=== PATIENT | female | born 1930 | race Caucasian/White ===

== ENCOUNTER 2018-06-24 11:47 | Inpatient (IN) | payer MEDICARE, MEDICAID ==
[2018-06-24] MEDS ORDERED: Aspirin 325 mg EC Tablets PO STA (12:42)
--- NOTE | 2018-06-24 13:00 | RAD ---
Date of service: 06/24/2018 PROCEDURE: CHEST RADIOGRAPH, 1 VIEW HISTORY: chest pain COMPARISON: None available. FINDINGS: LUNGS: No consolidation. Shallow lung volumes PLEURA: No pneumothorax. Probable small left pleural effusion CARDIOVASCULAR: Mild cardiomegaly. Mild pulmonary venous congestion OSSEOUS STRUCTURES: Midline sternotomy. VISUALIZED UPPER ABDOMEN: Normal. OTHER FINDINGS: Italic device projects over the left heart correlate clinically IMPRESSION: Mild cardiomegaly and mild pulmonary venous congestion small left pleural effusion. Other findings as above.
[2018-06-24 13:02] LABS: BASO % 0.9 % (0.0-2.0); EOS % 0.4 % (0.0-4.0); HEMOGLOBIN 10.9 g/dL (11.0-16.0); LYMPH # 1.9 K/uL (1.0-4.3); MEAN CELL VOLUME 87.7 fL (81.0-99.0); MEAN CORPUSCULAR HEMOGLOBIN 29.7 pg (27.0-31.0); MEAN CORPUSCULAR HGB CONC 33.9 g/dL (33.0-37.0); MEAN PLATELET VOLUME 8.8 fL (7.2-11.7); MONO # 0.7 K/uL (0.0-0.8); MONO % 13.2 % (0.0-10.0); NEUT # 2.8 K/uL (1.8-7.0); NEUT % 51.5 % (50.0-75.0); RBC 3.67 Mil/uL (3.80-5.20); RED CELL DISTRIBUTION WIDTH 14.7 % (11.5-14.5); WHITE BLOOD COUNT 5.5 K/uL (4.8-10.8)
[2018-06-24 13:32] LABS: ALBUMIN 3.9 g/dL (3.5-5.0); ALT/SGPT 20 U/L (9-52); AST/SGOT 13 U/L (14-36); BLOOD UREA NITROGEN 14 mg/dL (7-17); CALCIUM 9.1 mg/dl (8.6-10.4); GFR NON-AFRICAN AMERICAN > 60
[2018-06-24] MEDS ORDERED: Iodixanol 320 MG/ML 100 ML BOTTLE IV ONE (13:40)
[2018-06-24 13:44] LABS: B-TYPE NATRIURETIC PEPTIDE 5600 pg/mL (0-900)
--- NOTE | 2018-06-24 15:28 | C.PDOC ---
History Of Present Illness 88 y/o female, BIB family,presents to the ED complaining of left sided chest pain since this morning. As per family, the patient has a PMHx of a valve replacement. The patient states she has not had any type of cardiac workup done recently. She reports flying in from [place] this morning. The patient denies any fever, SOB or cough. Time Seen by Provider: 06/24/18 12:40 Chief Complaint (Nursing): Chest Pain History Per: Patient History/Exam Limitations: no limitations Onset/Duration Of Symptoms: Hrs Current Symptoms Are (Timing): Still Present Quality: "Pain" Recent travel outside of the [place]: No Additional History Per: Family (son) Past Medical History Reviewed: Historical Data, Nursing Documentation, Vital Signs Vital Signs: Last Vital Signs Temp 97.4 F L 06/24/18 17:30 Pulse 75 06/24/18 17:30 Resp 20 06/24/18 17:30 BP 145/79 06/24/18 17:30 Pulse Ox 98 06/24/18 17:30 - Medical History PMH: Gastrointestinal Ulcer, HTN Other Surgeries: Valve replacement Family History: States: Unknown Family Hx - Social History Hx Alcohol Use: No Hx Substance Use: No - Immunization History Hx Tetanus Toxoid Vaccination: No Hx Influenza Vaccination: Yes Hx Pneumococcal Vaccination: No Review Of Systems Except As Marked, All Systems Reviewed And Found Negative. Constitutional: Negative for: Fever Cardiovascular: Positive for: Chest Pain (left sided ) Respiratory: Negative for: Cough, Shortness of Breath Neurological: Negative for: Weakness Physical Exam - Physical Exam Appears: Well, Non-toxic, No Acute Distress Skin: Normal Color, Warm, No Rash Head: Atraumatic, Normacephalic Eye(s): bilateral: PERRL, EOMI Ear(s): Bilateral: Normal Oral Mucosa: Moist Neck: Normal ROM, Supple Chest: Symmetrical Cardiovascular: Rhythm Irregular, No Murmur Respiratory: Normal Breath Sounds, Rales, Rhonchi, Wheezing Gastrointestinal/Abdominal: Soft, No Tenderness, No Distention Extremity: Normal ROM Extremity: Bilateral: Other (trace edema) Pulses: Left Dorsalis Pedis: Normal, Right Dorsalis Pedis: Normal Neurological/Psych: Oriented x3, Other (no gross focal deficit) Gait: Steady ED Course And Treatment - Laboratory Results Result Diagrams: 06/24/18 12:58 06/24/18 13:18 ECG: Interpreted By Me Interpretation Of ECG: A-Fib 191 bpm O2 Sat by Pulse Oximetry: 100 (RA) Pulse Ox Interpretation: Normal - Other Rad Chest X-Ray: Viewed By Me, Read By Radiologist Interpretation: FINDINGS: LUNGS: No consolidation. Shallow lung volumes. PLEURA: No pneumothorax. Probable small left pleural effusion. CARDIOVASCULAR : Mild cardiomegaly. Mild pulmonary venous congestion. OSSEOUS STRUCTURES: Midline sternotomy. VISUALIZED UPPER ABDOMEN: Normal. OTHER FINDINGS: Italic device projects over the left heart correlate clinically. IMPRESSION: Mild cardiomegaly and mild pulmonary venous congestion small left pleural effusion. Other findings as above. - CT Scan/US Chest Other Rad Studies (CT/US): Read By Radiologist, Radiology Report Reviewed CT/US Interpretation: FINDINGS: PULMONARY ARTERIES: Visualized pulmonary trunk , right and left main, lobar, segmental and proximal subsegmental branches of the pulmonary arteries are relatively well opacified with defects seen to suggest acute central pulmonary embolus. Pulmonary trunk measures approximately 2.8 cm. AORTA: No acute findings. No thoracic aortic aneurysm. Ascending thoracic aorta measures approximately 3.5 cm and descending thoracic aorta measures approximately 2.5 cm. LUNGS: Mild passive/dependent type atelectasis both posterior lower lung garsia. Additionally, there are vague ground-glass hazy opacities seen throughout the upper and lower lobes that could represent sequela of air trapping ; rule out mild chronic compensated pulmonary venous congestion. There is a small approximately 4.7 mm elliptical shaped nodular density left upper lobe along the posterolateral convexity near the pleural surface with made the inferior translucent and component seen on axial series 3 image number 25 and 29 respectively. Image number. In addition, there is a very tiny approximately 1.3 mm nodular density posterior aspect left upper lobe abutting lateral margin of the major fissure. There appears to be some minimal scarring changes in the left lingular region and left anterior upper. PLEURAL SPACES: Unremarkable. No effusion or pneumothorax. HEART: Unremarkable. No cardiomegaly. No significant pericardial effusion. Heavy mitral valve calcification. LYMPH NODES: Few small nonspecific mediastinal lymph nodes are present. No significant hilar adenopathy. Central airways midline and patent. BONES, CHEST WALL: Mild multilevel degenerative spondylosis of the thoracic spine. No acute compression fractures no retropulsed fragments. Vertebral bodies exhibit normal stature. Minimal levoscoliosis centered in the lower thoracic region. Vertebral bodies and facets otherwise exhibit normal alignment. . OTHER FINDINGS: Small low-attenuation nodular densities both adrenal glands likely representing adrenal adenomas (left-side measuring approximate 12.2 mm right side measuring approximately 11.2 mm) . Cholecystectomy. IMPRESSION: No evidence of acute central pulmonary embolus. Marked cardiomegaly. Mild passive/dependent type atelectasis both posterior lower lung garsia. Hazy ground-glass opacities seen throughout the upper lobes bilaterally nonspecific. Rule out air trapping versus mild chronic compensated pulmonary venous congestion. There are 2 tiny nodular densities right upper lobe as detailed above. Followup the CT scan in 6 months could be performed to assess stability. Medical Decision Making Medical Decision Making: Impression: 88 y/o female with left sided chest pain Plan: -Chest CT -EKG -B-Type Natriuretic Peptide -CMP -Troponin I -CBC -Chest X-Ray -Aspirin 325 mg PO Disposition - Disposition Disposition: HOSPITALIZED Disposition Time: 16:00 Condition: STABLE - Clinical Impression Clinical Impression: Chest pain - PA / ACCOUNT DEVELOPMENT EXECUTIVE / Resident Statement MD/DO has reviewed & agrees with the documentation as recorded. - Scribe Statement The provider has reviewed the documentation as recorded by the Scribe (Damari Schmitt) Provider Attestation: All medical record entries made by the Scribe were at my direction and personally dictated by me. I have reviewed the chart and agree that the record accurately reflects my personal performance of the history, physical exam, medical decision making, and the department course for this patient. I have also personally directed, reviewed, and agree with the discharge instructions and disposition.
--- NOTE | 2018-06-24 16:01 | CT ---
Date of service: 06/24/2018 PROCEDURE: CT Chest with contrast (Pulmonary Angiogram) HISTORY: Chest pain ; rule out PE COMPARISON: None available. TECHNIQUE: Axial computed tomography images were obtained of the chest in the pulmonary arterial phase of enhancement. Coronal and sagittal reformatted images were created and reviewed. Intravenous contrast dose: 100 cc Visipaque 320 Radiation dose: Total exam DLP = 146.28 mGy-cm. This CT exam was performed using one or more of the following dose reduction techniques: Automated exposure control, adjustment of the mA and/or kV according to patient size, and/or use of iterative reconstruction technique. FINDINGS: PULMONARY ARTERIES: Visualized pulmonary trunk, right and left main, lobar, segmental and proximal subsegmental branches of the pulmonary arteries are relatively well opacified with defects seen to suggest acute central pulmonary embolus. Pulmonary trunk measures approximately 2.8 cm. AORTA: No acute findings. No thoracic aortic aneurysm. Ascending thoracic aorta measures approximately 3.5 cm and descending thoracic aorta measures approximately 2.5 cm. LUNGS: Mild passive/dependent type atelectasis both posterior lower lung garsia. Additionally, there are vague ground-glass hazy opacities seen throughout the upper and lower lobes that could represent sequela of air trapping ; rule out mild chronic compensated pulmonary venous congestion. There is a small approximately 4.7 mm elliptical shaped nodular density left upper lobe along the posterolateral convexity near the pleural surface with made the inferior translucent and component seen on axial series 3 image number 25 and 29 respectively. Image number. In addition, there is a very tiny approximately 1.3 mm nodular density posterior aspect left upper lobe abutting lateral margin of the major fissure. There appears to be some minimal scarring changes in the left lingular region and left anterior upper PLEURAL SPACES: Unremarkable. No effusion or pneumothorax. HEART: Unremarkable. No cardiomegaly. No significant pericardial effusion. Heavy mitral valve calcification. LYMPH NODES: Few small nonspecific mediastinal lymph nodes are present. No significant hilar adenopathy. Central airways midline and patent. BONES, CHEST WALL: Mild multilevel degenerative spondylosis of the thoracic spine. No acute compression fractures no retropulsed fragments. Vertebral bodies exhibit normal stature. Minimal levoscoliosis centered in the lower thoracic region. Vertebral bodies and facets otherwise exhibit normal alignment. . OTHER FINDINGS: Small low-attenuation nodular densities both adrenal glands likely representing adrenal adenomas (left-side measuring approximate 12.2 mm right side measuring approximately 11.2 mm) . Cholecystectomy. IMPRESSION: No evidence of acute central pulmonary embolus. Marked cardiomegaly. Mild passive/dependent type atelectasis both posterior lower lung garsia. Hazy ground-glass opacities seen throughout the upper lobes bilaterally nonspecific. Rule out air trapping versus mild chronic compensated pulmonary venous congestion. There are 2 tiny nodular densities right upper lobe as detailed above. Followup the CT scan in 6 months could be performed to assess stability.
[2018-06-24 17:50] VITALS: RESP 20
--- NOTE | 2018-06-24 18:28 | CP.PCM.HP ---
Past Patient History - Infectious Disease Hx of Infectious Diseases: None - Past Social History Smoking Status: Never Smoked - CARDIAC Hx Hypertension: Yes - PSYCHIATRIC Hx Substance Use: No - SURGICAL HISTORY Hx Surgeries: Yes Hx Valve Replacement: Yes - ANESTHESIA Hx Anesthesia: Yes Hx Anesthesia Reactions: No Hx Malignant Hyperthermia: No Meds Allergies/Adverse Reactions: Allergies Allergy/AdvReac Type Severity Reaction Status Date / Time No Known Allergies Allergy Verified 06/24/18 12:13 Results - Vital Signs Recent Vital Signs: Last Vital Signs Temp 97.4 F L 06/24/18 17:30 Pulse 75 06/24/18 17:30 Resp 20 06/24/18 17:30 BP 145/79 06/24/18 17:30 Pulse Ox 98 06/24/18 17:30 - Labs Result Diagrams: 06/24/18 12:58 06/24/18 13:18 Labs: Laboratory Results - last 24 hr 06/24/18 06/24/18 12:58 13:18 WBC 5.5 RBC 3.67 L Hgb 10.9 L Hct 32.2 L MCV 87.7 MCH 29.7 MCHC 33.9 RDW 14.7 H Plt Count 205 MPV 8.8 Neut % (Auto) 51.5 Lymph % (Auto) 34.0 [place] % (Auto) 13.2 H Eos % (Auto) 0.4 Baso % (Auto) 0.9 Neut # (Auto) 2.8 Lymph # (Auto) 1.9 [place] # (Auto) 0.7 Eos # (Auto) 0.0 Baso # (Auto) 0.0 Sodium 135 Potassium 4.9 Chloride 100 Carbon Dioxide 24 Anion Gap 17 BUN 14 Creatinine 0.8 Est GFR ( Amer) > 60 Est GFR (Non-Af Amer) > 60 Random Glucose 122 H Calcium 9.1 Total Bilirubin 0.6 AST 13 L ALT 20 Alkaline Phosphatase 67 Troponin I < 0.0120 NT-Pro-B Natriuret Pep 5600 H Total Protein 7.6 Albumin 3.9 Globulin 3.7 Albumin/Globulin Ratio 1.0
--- NOTE | 2018-06-24 18:59 | CARD ---
APPROVED REPORT Date of service: 06/24/2018 EKG Measurement Heart [id number] <Conclusion> Atrial fibrillation Nonspecific ST and T wave abnormality Abnormal ECG
[2018-06-24 23:10] LABS: CK-MB 0.47 ng/mL (0.0-3.38)
[2018-06-25 07:24] LABS: CK-MB 0.51 ng/mL (0.0-3.38)
[2018-06-25] MEDS: Pantoprazole 40 mg EC Tab PO SCH (09:18)
[2018-06-25] MEDS: Enoxaparin 40 mg Syringe SC SCH (09:21)
--- NOTE | 2018-06-25 11:25 | CP.PCM.PN ---
Subjective - Date & Time of Evaluation Date of Evaluation: 06/25/18 Time of Evaluation: 15:30 - Subjective Subjective: PGY 3 Med Note- Dr. Ruy Jimenez's service. CC: chest pain 88 year old female with past medical history significant for atrial fibrillation and prior mitral valve replacement presents with complaints of chest pain which she began experiencing one day prior. Patient recently arrived from [place]. Patient denies current chest pain or palpitations. Limited ROS at this time. PMHx- as stated above PSHx- valve replacement Fam Hx unkown Social- denies at this time Meds- ASA 81 mg, Coreg 25 mg daily, PPI 40 mg daily, Zestril 20 mg daily, Feosol 325 mg daily Allergies- NKDA Objective - Vital Signs/Intake and Output Vital Signs (last 24 hours): Temp Pulse Resp BP Pulse Ox 98.5 F 100 H 20 121/77 100 06/25/18 07:00 06/25/18 07:35 06/25/18 07:00 06/25/18 09:18 06/25/18 07:00 Intake and Output: 06/25/18 06/25/18 06:59 18:59 Intake Total 420 Balance 420 - Medications Medications: Current Medications Aspirin (Aspirin Chewable) 81 mg PO DAILY [facility] Last Admin: 06/25/18 09:18 Dose: 81 mg Carvedilol (Coreg) 25 mg PO DAILY [facility] Last Admin: 06/25/18 09:18 Dose: 25 mg Enoxaparin Sodium (Lovenox) 40 mg SC DAILY [facility] Last Admin: 06/25/18 09:21 Dose: 40 mg Ferrous Sulfate (Feosol) 325 mg PO DAILY [facility] Last Admin: 06/25/18 11:06 Dose: 325 mg Lisinopril (Zestril) 20 mg PO DAILY [facility] Last Admin: 06/25/18 09:18 Dose: 20 mg Pantoprazole Sodium (Protonix Ec Tab) 40 mg PO DAILY [facility] Last Admin: 06/25/18 09:18 Dose: 40 mg Pneumococcal Polyvalent Vaccine (Pneumovax 23 Vaccine) 0.5 ml IM .ONCE ONE Stop: 06/26/18 10:01 - Labs Labs: 06/24/18 12:58 06/24/18 13:18 - Constitutional Appears: Non-toxic, No Acute Distress - Head Exam Head Exam: ATRAUMATIC, NORMAL INSPECTION, NORMOCEPHALIC - Eye Exam Eye Exam: EOMI, Normal appearance Pupil Exam: NORMAL ACCOMODATION, PERRL - ENT Exam ENT Exam: Mucous Membranes Moist - Neck Exam Neck Exam: Full ROM - Respiratory Exam Respiratory Exam: Clear to Ausculation Bilateral, NORMAL BREATHING PATTERN - Cardiovascular Exam Cardiovascular Exam: +S1, +S2 - GI/Abdominal Exam GI & Abdominal Exam: Soft, Normal Bowel Sounds - Extremities Exam Extremities Exam: Full ROM, Pedal Edema (trace) - Neurological Exam Neurological Exam: Alert, Awake - Psychiatric Exam Psychiatric exam: Normal Affect, Normal Mood - Skin Skin Exam: Dry, Normal Color Assessment and Plan (1) Chest pain Assessment & Plan: EKG showed Atrial fibrillation Echo showed EF of 46.7%; LV systolic function noted. Normal LV segmental wall motion. Biprosthetic mitral valve noted. Mitral regurgitation (mild) noted. Mild tricuspid regurgitation and mild pulmonary HTN ROMIs were neg. [place], (Dr. Jolley consulted) Cont ASA 81 mg, Coreg 25 mg PO daily, Zestril 20 mg PO daily at this time F/U TSH, Free T4, HgbA1c, Lipid Panel Status: Acute (2) Atrial fibrillation Assessment & Plan: EKG shows atrial fibrillation On telemetry Continue beta yesenia therapy Cardiology (Dr. Jolley) following Monitor Status: Chronic (3) Prophylactic measure Assessment & Plan: On Lovenox 40 mg SC daily On PPI 40 mg PO daily Discussed with attending. All management and planning per Dr. Ruy Jimenez. Status: Acute
--- NOTE | 2018-06-25 11:38 | CP.PCM.CON ---
History of Present Illness - History of Present Illness History of Present Illness: 88 y/o female, BIB family,presents to the ED complaining of left sided chest pain since this morning. As per family, the patient has a PMHx of a valve replacement. The patient states she has not had any type of cardiac workup done recently. She reports flying in from [place] this morning. The patient denies any fever, SOB or cough. PSHX: Valve replacement 14 years ago [place], unknown valve...No cardiac hx obtainable as patient is not able to detail her medical history and unable to contact family. Review of Systems - Review of Systems All systems: reviewed and no additional remarkable complaints except Past Patient History - Infectious Disease Hx of Infectious Diseases: None - Past Social History Smoking Status: Never Smoked - CARDIAC Hx Hypertension: Yes - PSYCHIATRIC Hx Substance Use: No - SURGICAL HISTORY Hx Surgeries: Yes Hx Valve Replacement: Yes - ANESTHESIA Hx Anesthesia: Yes Hx Anesthesia Reactions: No Hx Malignant Hyperthermia: No Meds Allergies/Adverse Reactions: Allergies Allergy/AdvReac Type Severity Reaction Status Date / Time No Known Allergies Allergy Verified 06/24/18 12:13 - Medications Medications: Current Medications Aspirin (Aspirin Chewable) 81 mg PO DAILY [facility] Last Admin: 06/25/18 09:18 Dose: 81 mg Carvedilol (Coreg) 25 mg PO DAILY [facility] Last Admin: 06/25/18 09:18 Dose: 25 mg Enoxaparin Sodium (Lovenox) 40 mg SC DAILY [facility] Last Admin: 06/25/18 09:21 Dose: 40 mg Ferrous Sulfate (Feosol) 325 mg PO DAILY [facility] Last Admin: 06/25/18 11:06 Dose: 325 mg Lisinopril (Zestril) 20 mg PO DAILY [facility] Last Admin: 06/25/18 09:18 Dose: 20 mg Pantoprazole Sodium (Protonix Ec Tab) 40 mg PO DAILY [facility] Last Admin: 06/25/18 09:18 Dose: 40 mg Pneumococcal Polyvalent Vaccine (Pneumovax 23 Vaccine) 0.5 ml IM .ONCE ONE Stop: 06/26/18 10:01 Physical Exam - Constitutional Appears: No Acute Distress - Head Exam Head Exam: ATRAUMATIC, NORMAL INSPECTION, NORMOCEPHALIC - Eye Exam Eye Exam: EOMI, Normal appearance, PERRL - ENT Exam ENT Exam: Mucous Membranes Moist - Neck Exam Neck exam: Positive for: Full Rom, Normal Inspection - Respiratory Exam Respiratory Exam: Clear to Auscultation Bilateral. absent: Rhonchi, Wheezes - Cardiovascular Exam Cardiovascular Exam: REGULAR RHYTHM, +S1, +S2. absent: Systolic Murmur - GI/Abdominal Exam GI & Abdominal Exam: Normal Bowel Sounds, Soft. absent: Tenderness - Extremities Exam Extremities exam: Positive for: normal inspection. Negative for: pedal edema - Neurological Exam Neurological exam: Alert, Oriented x3 - Psychiatric Exam Psychiatric exam: Normal Affect, Normal Mood - Skin Skin Exam: Normal Color, Warm Results - Vital Signs Recent Vital Signs: Last Vital Signs Temp 98.5 F 06/25/18 07:00 Pulse 100 H 06/25/18 07:35 Resp 20 06/25/18 07:00 BP 121/77 06/25/18 09:18 Pulse Ox 100 06/25/18 07:00 - Labs Result Diagrams: 06/24/18 12:58 06/24/18 13:18 Labs: Laboratory Results - last 24 hr 06/24/18 06/24/18 06/24/18 12:58 13:18 21:35 WBC 5.5 RBC 3.67 L Hgb 10.9 L Hct 32.2 L MCV 87.7 MCH 29.7 MCHC 33.9 RDW 14.7 H Plt Count 205 MPV 8.8 Neut % (Auto) 51.5 Lymph % (Auto) 34.0 [place] % (Auto) 13.2 H Eos % (Auto) 0.4 Baso % (Auto) 0.9 Neut # (Auto) 2.8 Lymph # (Auto) 1.9 [place] # (Auto) 0.7 Eos # (Auto) 0.0 Baso # (Auto) 0.0 Sodium 135 Potassium 4.9 Chloride 100 Carbon Dioxide 24 Anion Gap 17 BUN 14 Creatinine 0.8 Est GFR ( Amer) > 60 Est GFR (Non-Af Amer) > 60 Random Glucose 122 H Calcium 9.1 Total Bilirubin 0.6 AST 13 L ALT 20 Alkaline Phosphatase 67 Total Creatine Kinase 29 L CK-MB (Mass) 0.47 Troponin I < 0.0120 < 0.0120 NT-Pro-B Natriuret Pep 5600 H Total Protein 7.6 Albumin 3.9 Globulin 3.7 Albumin/Globulin Ratio 1.0 06/25/18 06:54 WBC RBC Hgb Hct MCV MCH MCHC RDW Plt Count MPV Neut % (Auto) Lymph % (Auto) [place] % (Auto) Eos % (Auto) Baso % (Auto) Neut # (Auto) Lymph # (Auto) [place] # (Auto) Eos # (Auto) Baso # (Auto) Sodium Potassium Chloride Carbon Dioxide Anion Gap BUN Creatinine Est GFR ( Amer) Est GFR (Non-Af Amer) Random Glucose Calcium Total Bilirubin AST ALT Alkaline Phosphatase Total Creatine Kinase 27 L CK-MB (Mass) 0.51 Troponin I < 0.0120 NT-Pro-B Natriuret Pep Total Protein Albumin Globulin Albumin/Globulin Ratio - EKG Data EKG Interpreted by: Myself Assessment & Plan - Assessment and Plan (Free Text) Assessment: Diagnostic images directly viewed by me and summarized as follows: EKG: AFIB, no acute ischemic changes CXR: mild congestion, cardiomegaly labs: Trop negative x3, mild anemia 10.2; normal creat IMPRESSION: 1. Hx of unknown valve surgery: - per echo it is non-metallic ? 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 cardiac silloute ? cardiomems PA pressure monitor ECHO suggests: Mod LVH, normal LVEF, mild MR, TR, mild-mod pulm HTN, grade 2 diastolic dysfunction, mild but no hemodynamically significant valve lesions. Normal wall motion 2. AFIB - likely chronic - Patient will benefit from chronic anticoagulation for stroke risk reduction - cont rate control. 3. HTN - labile - coreg 25 BID, lisinopril 20, add norvasc 5 daily if needed Currently there is no evidence of ADHF AFIB rate is controlled Patient not able to detail her medical valve history Family not reachable > social work to help clarify details
--- NOTE | 2018-06-25 14:03 | CARD ---
APPROVED REPORT Date of service: 06/25/2018 EXAM: Two-dimensional and M-mode echocardiogram with Doppler and color Doppler. Other Information Quality : GoodRhythm : INDICATION Chest Pain HX OF VALVE REPLACEMENT 2D DIMENSIONS IVSd1.4 (0.7-1.1cm)LVDd3.2 (3.9-5.9cm) LVOT Diameter1.5 (1.8-2.4cm)PWd1.4 (0.7-1.1cm) LVDs2.5 (2.5-4.0cm)FS (%) 22.6 % LVEF (%)46.7 (>50%) M-Mode DIMENSIONS Left Atrium (MM)5.14 (2.5-4.0cm)Aortic Root2.43 (2.2-3.7cm) Aortic Cusp Exc.1.18 (1.5-2.0cm) Aortic Valve AoV Peak Cmpsgfkh262.6cm/sAoV VTI36.9cmAO Peak GR.16mmHg LVOT Peak Ojabiado981.7cm/sLVOT VTI19.80cmAO Mean GR.7mmHg SARA (VMAX)0.04cj9QLC (VTI)0.97cm2 Mitral Valve MV E Smdextdo611.2cm/sMV E Peak Gr.10mmHgMV A Leizdtjt67.3cm/s MV E Mean Gr.4mmHgMV IPJ27kdQ/A ratio3.1 MVA (PHT)2.57cm2 TDI E/Lateral E'0.0E/Medial E'0.0 Pulmonary Valve PV Peak Efghldns90.9cm/sPV Peak Grad.1mmHg Tricuspid Valve TR Peak Lwevwujp051sm/sTR Peak Gr.93oxXiIARV72tjLa LEFT VENTRICLE The left ventricle is normal size. There is moderate concentric left ventricular hypertrophy. Left ventricle systolic function is borderline. There is normal LV segmental wall motion. RIGHT VENTRICLE The right ventricle is normal size. There is normal right ventricular wall thickness. Systolic function is mildly reduced. ATRIA The left atrium is moderately dilated. The right atrium is moderately dilated. AORTIC VALVE ? TAVR No aortic regurgitation is present. There is no aortic valvular stenosis. MITRAL VALVE There is no mitral valve stenosis. Mitral regurgitation is mild. There is a bioprosthetic mitral valve. TRICUSPID VALVE The tricuspid valve is normal in structure. There is mild tricuspid regurgitation. There is mild pulmonary hypertension. GREAT VESSELS The aortic root is normal in size. The IVC is dilated. PERICARDIAL EFFUSION There is no pericardial effusion. <Conclusion> The left ventricle is normal size. There is moderate concentric left ventricular hypertrophy. Left ventricle systolic function is borderline. There is normal LV segmental wall motion. ? TAVR No aortic regurgitation is present. There is no aortic valvular stenosis. There is a bioprosthetic mitral valve. Mitral regurgitation is mild. There is no mitral valve stenosis. There is mild tricuspid regurgitation. There is mild pulmonary hypertension.
--- NOTE | 2018-06-25 20:26 | CP.PCM.PN ---
Subjective - Date & Time of Evaluation Date of Evaluation: 06/25/18 Time of Evaluation: 10:00 - Subjective Subjective: clinically same Objective - Vital Signs/Intake and Output Vital Signs (last 24 hours): Temp Pulse Resp BP Pulse Ox 97.9 F 80 20 98/58 L 100 06/25/18 17:04 06/25/18 17:04 06/25/18 17:04 06/25/18 17:04 06/25/18 17:04 - Medications Medications: Current Medications Aspirin (Aspirin Chewable) 81 mg PO DAILY [facility] Last Admin: 06/25/18 09:18 Dose: 81 mg Carvedilol (Coreg) 25 mg PO DAILY [facility] Last Admin: 06/25/18 09:18 Dose: 25 mg Enoxaparin Sodium (Lovenox) 40 mg SC DAILY [facility] Last Admin: 06/25/18 09:21 Dose: 40 mg Ferrous Sulfate (Feosol) 325 mg PO DAILY [facility] Last Admin: 06/25/18 11:06 Dose: 325 mg Lisinopril (Zestril) 20 mg PO DAILY [facility] Last Admin: 06/25/18 09:18 Dose: 20 mg Pantoprazole Sodium (Protonix Ec Tab) 40 mg PO DAILY [facility] Last Admin: 06/25/18 09:18 Dose: 40 mg Pneumococcal Polyvalent Vaccine (Pneumovax 23 Vaccine) 0.5 ml IM .ONCE ONE Stop: 06/26/18 10:01 - Labs Labs: 06/24/18 12:58 06/24/18 13:18 - Constitutional Appears: Well - Head Exam Head Exam: ATRAUMATIC, NORMAL INSPECTION, NORMOCEPHALIC - Eye Exam Eye Exam: EOMI, Normal appearance, PERRL Pupil Exam: NORMAL ACCOMODATION, PERRL - ENT Exam ENT Exam: Mucous Membranes Moist, Normal Exam - Neck Exam Neck Exam: Full ROM, Normal Inspection. absent: Lymphadenopathy - Respiratory Exam Respiratory Exam: Decreased Breath Sounds - Cardiovascular Exam Cardiovascular Exam: REGULAR RHYTHM, +S1, +S2 - GI/Abdominal Exam GI & Abdominal Exam: Soft, Diminished Bowel Sounds - Rectal Exam Rectal Exam: Deferred
[2018-06-26] MEDS: Pantoprazole 40 mg EC Tab PO SCH (10:00)
[2018-06-26] MEDS: Enoxaparin 40 mg Syringe SC SCH (10:00)
[2018-06-26] MEDS ORDERED: Pneumococcal 23-Valent Vaccine IM ONE (10:00)
--- NOTE | 2018-06-26 15:49 | CP.PCM.PN ---
Subjective - Date & Time of Evaluation Date of Evaluation: 06/26/18 Time of Evaluation: 09:15 - Subjective Subjective: clinically same Objective - Vital Signs/Intake and Output Vital Signs (last 24 hours): Temp Pulse Resp BP Pulse Ox 97.7 F 74 20 147/96 H 99 06/26/18 08:00 06/26/18 12:00 06/26/18 08:00 06/26/18 12:00 06/26/18 08:00 Intake and Output: 06/26/18 06/26/18 06:59 18:59 Intake Total 240 Balance 240 - Medications Medications: Current Medications Aspirin (Aspirin Chewable) 81 mg PO DAILY [facility] Last Admin: 06/26/18 10:00 Dose: 81 mg Carvedilol (Coreg) 25 mg PO Q12H [facility] Enoxaparin Sodium (Lovenox) 40 mg SC DAILY [facility] Last Admin: 06/26/18 10:00 Dose: 40 mg Ferrous Sulfate (Feosol) 325 mg PO DAILY [facility] Last Admin: 06/26/18 10:00 Dose: 325 mg Lisinopril (Zestril) 20 mg PO DAILY [facility] Last Admin: 06/26/18 10:00 Dose: 20 mg Pantoprazole Sodium (Protonix Ec Tab) 40 mg PO DAILY [facility] Last Admin: 06/26/18 10:00 Dose: 40 mg - Labs Labs: 06/24/18 12:58 06/24/18 13:18 - Constitutional Appears: Well - Head Exam Head Exam: ATRAUMATIC, NORMAL INSPECTION, NORMOCEPHALIC - Eye Exam Eye Exam: EOMI, Normal appearance, PERRL Pupil Exam: NORMAL ACCOMODATION, PERRL - ENT Exam ENT Exam: Mucous Membranes Moist, Normal Exam - Neck Exam Neck Exam: Full ROM, Normal Inspection. absent: Lymphadenopathy - Respiratory Exam Respiratory Exam: Decreased Breath Sounds - Cardiovascular Exam Cardiovascular Exam: REGULAR RHYTHM, +S1, +S2 - GI/Abdominal Exam GI & Abdominal Exam: Soft, Diminished Bowel Sounds - Rectal Exam Rectal Exam: Deferred
[2018-06-27] MEDS: Pantoprazole 40 mg EC Tab PO SCH (10:02)
[2018-06-27] MEDS: Enoxaparin 40 mg Syringe SC SCH (10:02)
--- NOTE | 2018-06-27 13:38 | CP.PCM.PN ---
Subjective - Date & Time of Evaluation Date of Evaluation: 06/27/18 Time of Evaluation: 09:00 - Subjective Subjective: clinically same Objective - Vital Signs/Intake and Output Vital Signs (last 24 hours): Temp Pulse Resp BP Pulse Ox 97.8 F 97 H 20 120/74 99 06/26/18 23:00 06/27/18 04:21 06/26/18 23:00 06/27/18 10:23 06/26/18 23:00 Intake and Output: 06/27/18 06/27/18 06:59 18:59 Intake Total 120 Balance 120 - Medications Medications: Current Medications Aspirin (Aspirin Chewable) 81 mg PO DAILY [facility] Last Admin: 06/27/18 10:02 Dose: 81 mg Carvedilol (Coreg) 25 mg PO Q12H [facility] Last Admin: 06/27/18 10:23 Dose: 25 mg Enoxaparin Sodium (Lovenox) 40 mg SC DAILY [facility] Last Admin: 06/27/18 10:02 Dose: 40 mg Ferrous Sulfate (Feosol) 325 mg PO DAILY [facility] Last Admin: 06/27/18 10:02 Dose: 325 mg Lisinopril (Zestril) 20 mg PO DAILY [facility] Last Admin: 06/27/18 10:02 Dose: 20 mg Pantoprazole Sodium (Protonix Ec Tab) 40 mg PO DAILY [facility] Last Admin: 06/27/18 10:02 Dose: 40 mg Pneumococcal Polyvalent Vaccine (Pneumovax 23 Vaccine) 0.5 ml IM .ONCE ONE Stop: 06/28/18 10:01 - Labs Labs: 06/24/18 12:58 06/24/18 13:18 - Constitutional Appears: Well - Head Exam Head Exam: ATRAUMATIC, NORMAL INSPECTION, NORMOCEPHALIC - Eye Exam Eye Exam: EOMI, Normal appearance, PERRL Pupil Exam: NORMAL ACCOMODATION, PERRL - ENT Exam ENT Exam: Mucous Membranes Moist, Normal Exam - Neck Exam Neck Exam: Full ROM, Normal Inspection. absent: Lymphadenopathy - Respiratory Exam Respiratory Exam: Decreased Breath Sounds - Cardiovascular Exam Cardiovascular Exam: REGULAR RHYTHM, +S1, +S2 - GI/Abdominal Exam GI & Abdominal Exam: Soft, Diminished Bowel Sounds - Rectal Exam Rectal Exam: Deferred
[2018-06-28 07:18] LABS: BASO % 0.2 % (0.0-2.0); EOS % 0.7 % (0.0-4.0); HEMOGLOBIN 9.6 g/dL (11.0-16.0); LYMPH # 2.2 K/uL (1.0-4.3); LYMPH % 38.6 % (20.0-40.0); MEAN CELL VOLUME 86.8 fL (81.0-99.0); MEAN CORPUSCULAR HEMOGLOBIN 28.7 pg (27.0-31.0); MEAN CORPUSCULAR HGB CONC 33.1 g/dL (33.0-37.0); MEAN PLATELET VOLUME 7.9 fL (7.2-11.7); MONO # 0.8 K/uL (0.0-0.8); MONO % 14.6 % (0.0-10.0); NEUT # 2.6 K/uL (1.8-7.0); NEUT % 45.9 % (50.0-75.0); NRBC % 0.1 % (0.0-2.0); RBC 3.34 Mil/uL (3.80-5.20); RED CELL DISTRIBUTION WIDTH 14.7 % (11.5-14.5); WHITE BLOOD COUNT 5.6 K/uL (4.8-10.8)
[2018-06-28 07:38] LABS: ALBUMIN 3.3 g/dL (3.5-5.0); ALT/SGPT 18 U/L (9-52); AST/SGOT 13 U/L (14-36); BLOOD UREA NITROGEN 17 mg/dL (7-17); CALCIUM 8.6 mg/dl (8.6-10.4); GFR NON-AFRICAN AMERICAN > 60
--- NOTE | 2018-06-28 08:20 | CP.PCM.PN ---
Subjective - Date & Time of Evaluation Date of Evaluation: 06/28/18 Time of Evaluation: 08:00 - Subjective Subjective: PGY-2 Med Note- Dr. Ruy Jimenez's service. Patient was seen and examined at bedside in the AM. Per nurse no acute events overnight. Patient's son was at bedside (Kb Jimenez) who states the patient was sent from [place] to [place] because the patient was unsteady on her feet and fell. He states the patient will be living with him once she is discharged. He states the patient is eating more now as they are bringing food from home. Patient denies any complaints at this time. Objective - Vital Signs/Intake and Output Vital Signs (last 24 hours): Temp Pulse Resp BP Pulse Ox 97.7 F 86 20 113/74 99 06/27/18 22:15 06/27/18 22:15 06/27/18 22:15 06/27/18 22:15 06/27/18 22:15 Intake and Output: 06/28/18 06/28/18 06:59 18:59 Intake Total 400 Balance 400 - Medications Medications: Current Medications Aspirin (Aspirin Chewable) 81 mg PO DAILY [facility] Last Admin: 06/27/18 10:02 Dose: 81 mg Carvedilol (Coreg) 25 mg PO Q12H [facility] Last Admin: 06/27/18 21:13 Dose: 25 mg Enoxaparin Sodium (Lovenox) 40 mg SC DAILY [facility] Last Admin: 06/27/18 10:02 Dose: 40 mg Ferrous Sulfate (Feosol) 325 mg PO DAILY [facility] Last Admin: 06/27/18 10:02 Dose: 325 mg Lisinopril (Zestril) 20 mg PO DAILY [facility] Last Admin: 06/27/18 10:02 Dose: 20 mg Pantoprazole Sodium (Protonix Ec Tab) 40 mg PO DAILY [facility] Last Admin: 06/27/18 10:02 Dose: 40 mg Pneumococcal Polyvalent Vaccine (Pneumovax 23 Vaccine) 0.5 ml IM .ONCE ONE Stop: 06/28/18 10:01 - Labs Labs: 06/28/18 07:09 06/28/18 07:09 - Constitutional Appears: No Acute Distress - Head Exam Head Exam: ATRAUMATIC, NORMAL INSPECTION - Eye Exam Eye Exam: EOMI, Normal appearance - ENT Exam ENT Exam: Mucous Membranes Moist - Respiratory Exam Respiratory Exam: NORMAL BREATHING PATTERN - Cardiovascular Exam Cardiovascular Exam: +S1, +S2 - GI/Abdominal Exam GI & Abdominal Exam: Soft - Extremities Exam Extremities Exam: Normal Inspection - Neurological Exam Neurological Exam: Alert, Awake - Psychiatric Exam Psychiatric exam: Normal Affect Assessment and Plan - Assessment and Plan (Free Text) Assessment: Chest pain Resolved EKG showed Atrial fibrillation Echo showed EF of 46.7%; LV systolic function noted. Normal LV segmental wall motion. Biprosthetic mitral valve noted. Mitral regurgitation (mild) noted. Mild tricuspid regurgitation and mild pulmonary HTN. - Spoke with both of patient's son's Kb Jimenez and Felix Jimenez who stated they do not know which valve was replaced as the surgery was done in [place]. 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 Jolley) following - Spoke with patient's son Kb Jimenez who states the patient was sent from [place] to [place] because the patient was unsteady on her feet and fell. Spoke with Dr. Jolley --> patient is a fall risk which is a contraindication for anticoagulation Monitor Prophylaxis On Lovenox 40 mg SC daily On PPI 40 mg PO daily Physical Therapy: recommendation to subacute rehab for 2 weeks Disposition: Discharge to subacute rehab 06/29/18 All management and planning per Dr. Ruy Jimenez.
[2018-06-28] MEDS: Pantoprazole 40 mg EC Tab PO SCH (09:59)
[2018-06-28] MEDS: Enoxaparin 40 mg Syringe SC SCH (09:59)
[2018-06-28] MEDS ORDERED: Pneumococcal 23-Valent Vaccine IM ONE (10:00)
--- NOTE | 2018-06-28 19:52 | CP.PCM.PN ---
Subjective - Date & Time of Evaluation Date of Evaluation: 06/28/18 Time of Evaluation: 08:45 - Subjective Subjective: clinically same Objective - Vital Signs/Intake and Output Vital Signs (last 24 hours): Temp Pulse Resp BP Pulse Ox 97.6 F 86 20 121/71 100 06/28/18 15:00 06/28/18 15:46 06/28/18 15:00 06/28/18 15:00 06/28/18 15:00 - Medications Medications: Current Medications Aspirin (Aspirin Chewable) 81 mg PO DAILY [facility] Last Admin: 06/28/18 09:59 Dose: 81 mg Carvedilol (Coreg) 25 mg PO Q12H [facility] Last Admin: 06/28/18 10:00 Dose: Not Given Enoxaparin Sodium (Lovenox) 40 mg SC DAILY [facility] Last Admin: 06/28/18 09:59 Dose: 40 mg Ferrous Sulfate (Feosol) 325 mg PO DAILY [facility] Last Admin: 06/28/18 09:59 Dose: 325 mg Lisinopril (Zestril) 20 mg PO DAILY [facility] Last Admin: 06/28/18 10:00 Dose: Not Given Pantoprazole Sodium (Protonix Ec Tab) 40 mg PO DAILY [facility] Last Admin: 06/28/18 09:59 Dose: 40 mg - Labs Labs: 06/28/18 07:09 06/28/18 07:09 - Constitutional Appears: Well - Head Exam Head Exam: ATRAUMATIC, NORMAL INSPECTION, NORMOCEPHALIC - Eye Exam Eye Exam: EOMI, Normal appearance, PERRL Pupil Exam: NORMAL ACCOMODATION, PERRL - ENT Exam ENT Exam: Mucous Membranes Moist, Normal Exam - Neck Exam Neck Exam: Full ROM, Normal Inspection. absent: Lymphadenopathy - Respiratory Exam Respiratory Exam: Decreased Breath Sounds - Cardiovascular Exam Cardiovascular Exam: REGULAR RHYTHM, +S1, +S2 - GI/Abdominal Exam GI & Abdominal Exam: Soft, Diminished Bowel Sounds - Rectal Exam Rectal Exam: Deferred
--- NOTE | 2018-06-29 07:42 | CP.PCM.PN ---
Subjective - Date & Time of Evaluation Date of Evaluation: 06/29/18 Time of Evaluation: 08:00 - Subjective Subjective: PGY-2 Med Note- Dr. Ruy Jimenez's service. Patient was seen and examined at bedside in the AM. Per nurse no acute events overnight. 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 Patient is hard of hearing additionally had house staff to help further translate. Patient stated she felt well but would like to take a shower. Patient denies other complaints at this time. Objective - Vital Signs/Intake and Output Vital Signs (last 24 hours): Temp Pulse Resp BP Pulse Ox 97.4 F L 101 H 20 147/90 100 06/29/18 03:20 06/29/18 03:20 06/29/18 03:20 06/29/18 03:20 06/29/18 03:20 - Medications Medications: Current Medications Aspirin (Aspirin Chewable) 81 mg PO DAILY [facility] Last Admin: 06/28/18 09:59 Dose: 81 mg Carvedilol (Coreg) 25 mg PO Q12H [facility] Last Admin: 06/28/18 22:02 Dose: 25 mg Enoxaparin Sodium (Lovenox) 40 mg SC DAILY [facility] Last Admin: 06/28/18 09:59 Dose: 40 mg Ferrous Sulfate (Feosol) 325 mg PO DAILY [facility] Last Admin: 06/28/18 09:59 Dose: 325 mg Lisinopril (Zestril) 20 mg PO DAILY [facility] Last Admin: 06/28/18 10:00 Dose: Not Given Pantoprazole Sodium (Protonix Ec Tab) 40 mg PO DAILY [facility] Last Admin: 06/28/18 09:59 Dose: 40 mg - Labs Labs: 06/28/18 07:09 06/28/18 07:09 - Constitutional Appears: No Acute Distress - Head Exam Head Exam: ATRAUMATIC, NORMAL INSPECTION - Eye Exam Eye Exam: EOMI, Normal appearance, PERRL Pupil Exam: NORMAL ACCOMODATION - ENT Exam ENT Exam: Mucous Membranes Moist - Neck Exam Additional comments: patient has dentures - Respiratory Exam Respiratory Exam: Clear to Ausculation Bilateral, NORMAL BREATHING PATTERN - Cardiovascular Exam Cardiovascular Exam: REGULAR RHYTHM, +S1, +S2 - GI/Abdominal Exam GI & Abdominal Exam: Soft, Normal Bowel Sounds. absent: Tenderness - Extremities Exam Extremities Exam: Normal Inspection - Neurological Exam Neurological Exam: Alert, Awake, Oriented x3 - Psychiatric Exam Psychiatric exam: Normal Affect Assessment and Plan - Assessment and Plan (Free Text) Assessment: Chest pain Resolved EKG showed Atrial fibrillation Echo showed EF of 46.7%; LV systolic function noted. Normal LV segmental wall motion. Biprosthetic mitral valve noted. Mitral regurgitation (mild) noted. Mild tricuspid regurgitation and mild pulmonary HTN. - Spoke with both of patient's son's Kb Jimenez and Felix Jimenez who stated they do not know which valve was replaced as the surgery was done in [place]. 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 Jolley) following - Spoke with patient's son Kb Jimenez who states the patient was sent from [place] to [place] because the patient was unsteady on her feet and fell. Spoke with Dr. Jolley --> patient is a fall risk which is a contraindication for anticoagulation Continue Coreg 25 mg PO q12h Monitor Prophylaxis On Lovenox 40 mg SC daily On PPI 40 mg PO daily Physical Therapy: recommendation to subacute rehab for 2 weeks Disposition: Discharge to subacute rehab ([facility]) 06/29/18 All management and planning per Dr. Ryu Jimenez.
[2018-06-29 08:06] VITALS: TEMP 97.7
[2018-06-29] MEDS: Enoxaparin 40 mg Syringe SC SCH (09:16)
[2018-06-29] MEDS: Pantoprazole 40 mg EC Tab PO SCH (09:16)
--- NOTE | 2018-06-29 10:27 | CP.PCM.PN ---
Subjective - Date & Time of Evaluation Date of Evaluation: 06/29/18 Time of Evaluation: 10:24 - Subjective Subjective: No cardiac complaints No SOB or CP No Fevers or chills Objective - Vital Signs/Intake and Output Vital Signs (last 24 hours): Temp Pulse Resp BP Pulse Ox 97.7 F 85 20 125/88 100 06/29/18 07:00 06/29/18 09:00 06/29/18 07:00 06/29/18 09:00 06/29/18 07:00 - Medications Medications: Current Medications Amlodipine Besylate (Norvasc) 5 mg PO DAILY [facility] Last Admin: 06/29/18 09:17 Dose: 5 mg Aspirin (Aspirin Chewable) 81 mg PO DAILY [facility] Last Admin: 06/29/18 09:16 Dose: 81 mg Carvedilol (Coreg) 25 mg PO Q12H [facility] Last Admin: 06/29/18 09:17 Dose: Not Given Enoxaparin Sodium (Lovenox) 40 mg SC DAILY [facility] Last Admin: 06/29/18 09:16 Dose: 40 mg Ferrous Sulfate (Feosol) 325 mg PO DAILY [facility] Last Admin: 06/29/18 09:16 Dose: 325 mg Lisinopril (Zestril) 20 mg PO DAILY [facility] Last Admin: 06/29/18 09:18 Dose: Not Given Pantoprazole Sodium (Protonix Ec Tab) 40 mg PO DAILY [facility] Last Admin: 06/29/18 09:16 Dose: 40 mg - Labs Labs: 06/28/18 07:09 06/28/18 07:09 - Constitutional Appears: No Acute Distress - Head Exam Head Exam: ATRAUMATIC, NORMAL INSPECTION, NORMOCEPHALIC - Eye Exam Eye Exam: EOMI, Normal appearance, PERRL - Neck Exam Neck Exam: Full ROM, Normal Inspection - Respiratory Exam Respiratory Exam: Clear to Ausculation Bilateral, NORMAL BREATHING PATTERN. absent: Rhonchi, Wheezes - Cardiovascular Exam Cardiovascular Exam: Irregular Rhythm, +S1, +S2, Murmur. absent: Gallop, +S4 - GI/Abdominal Exam GI & Abdominal Exam: Soft. absent: Tenderness, Organomegaly - Extremities Exam Extremities Exam: Normal Inspection. absent: Calf Tenderness, Pedal Edema - Neurological Exam Neurological Exam: Alert, Awake, Oriented x3 - Skin Skin Exam: Normal Color, Warm Assessment and Plan - Assessment and Plan (Free Text) Assessment: Diagnostic images directly viewed by me and summarized as follows: EKG: AFIB, no acute ischemic changes CXR: mild congestion, cardiomegaly labs: Trop negative x3, mild anemia 10.2; normal creat IMPRESSION: 1. Hx of unknown valve surgery: - per echo it is non-metallic ? 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 cardiac silloute ? cardiomems PA pressure monitor ECHO suggests: Mod LVH, normal LVEF, mild MR, TR, mild-mod pulm HTN, grade 2 diastolic dysfunction, mild but no hemodynamically significant valve lesions. Normal wall motion 2. AFIB - likely chronic - Patient will benefit from chronic anticoagulation for stroke risk reduction: per discussion with resident who spoke with family: Patient is a fall risk. - cont rate control. 3. HTN - labile - coreg 25 BID, lisinopril 20, increase norvasc 10 daily Currently there is no evidence of ADHF AFIB rate is controlled Patient not able to detail her medical valve history but appears hemodynamically stable Family not reachable > social work to help clarify details...possible d/c plannng to rehab/subacute
[2018-06-29 16:23] VITALS: BP 139/86; PULSE 83; O2SAT 100
--- NOTE | 2018-06-29 17:43 | CP.PCM.PN ---
Subjective - Date & Time of Evaluation Date of Evaluation: 06/29/18 Time of Evaluation: 07:30 - Subjective Subjective: clinically same Objective - Vital Signs/Intake and Output Vital Signs (last 24 hours): Temp Pulse Resp BP Pulse Ox 97.7 F 83 20 139/86 100 06/29/18 16:23 06/29/18 16:23 06/29/18 16:23 06/29/18 16:23 06/29/18 16:23 - Medications Medications: Current Medications Amlodipine Besylate (Norvasc) 5 mg PO DAILY [facility] Last Admin: 06/29/18 09:17 Dose: 5 mg Aspirin (Aspirin Chewable) 81 mg PO DAILY [facility] Last Admin: 06/29/18 09:16 Dose: 81 mg Carvedilol (Coreg) 25 mg PO Q12H [facility] Last Admin: 06/29/18 09:17 Dose: Not Given Enoxaparin Sodium (Lovenox) 40 mg SC DAILY [facility] Last Admin: 06/29/18 09:16 Dose: 40 mg Ferrous Sulfate (Feosol) 325 mg PO DAILY [facility] Last Admin: 06/29/18 09:16 Dose: 325 mg Lisinopril (Zestril) 20 mg PO DAILY [facility] Last Admin: 06/29/18 09:18 Dose: Not Given Pantoprazole Sodium (Protonix Ec Tab) 40 mg PO DAILY [facility] Last Admin: 06/29/18 09:16 Dose: 40 mg - Labs Labs: 06/28/18 07:09 06/28/18 07:09 - Constitutional Appears: Well - Head Exam Head Exam: ATRAUMATIC, NORMAL INSPECTION, NORMOCEPHALIC - Eye Exam Eye Exam: EOMI, Normal appearance, PERRL Pupil Exam: NORMAL ACCOMODATION, PERRL - ENT Exam ENT Exam: Mucous Membranes Moist, Normal Exam - Neck Exam Neck Exam: Full ROM, Normal Inspection. absent: Lymphadenopathy - Respiratory Exam Respiratory Exam: Decreased Breath Sounds - Cardiovascular Exam Cardiovascular Exam: REGULAR RHYTHM, +S1, +S2 - GI/Abdominal Exam GI & Abdominal Exam: Soft, Diminished Bowel Sounds - Rectal Exam Rectal Exam: Deferred
== END 2018-06-29 18:05 | DRG 303 ==
LOC: C.ER 11:47 → C.9E 16:15 → C.6T 17:07 → OBSVTOIN 06-26 11:32 → C.5S 06-29 01:30
PROVIDERS: ADMIT Internal Medicine Nephrology; ATTEND Internal Medicine Nephrology
DX: I25.10 Atherosclerotic heart disease of native coronary artery without angina pectoris (principal); J98.11 Atelectasis; R07.89 Other chest pain; I10 Essential (primary) hypertension; I27.20 Pulmonary hypertension, unspecified; I48.91 Unspecified atrial fibrillation; M47.814 Spondylosis without myelopathy or radiculopathy, thoracic region; Z91.81 History of falling; Z95.2 Presence of prosthetic heart valve; H91.90 Unspecified hearing loss, unspecified ear